=== PATIENT | male | born 1995 | race Caucasian/White ===

== ENCOUNTER 2019-02-27 18:21 | Emergency (ER) | payer OTHER, BC ==
[2019-02-27 18:26] VITALS: BP 98/79
--- NOTE | 2019-02-27 18:49 | EDPHY ---
General Time Seen by Provider: 02/27/19 18:43 Narrative: CLINICAL IMPRESSION: Left thumb pain, paresthesia ASSESSMENT/PLAN: Patient is a 23-year-old male who presents to the emergency department with left thumb pain and numbness to the top of his thumb after being handcuffed 2 nights ago. Patient is afebrile, he is in no acute distress. Physical examination reveals tenderness at the base of the left thumb, pins and needles sensation overlying this region into the dorsal aspect of his distal thumb on palpation. His motor nerve exam was normal. X-ray revealed no acute bony abnormality. History and physical examination is most consistent with sensory traumatic paresthesia and left thumb pain. No findings to suggest acute fracture, dislocation, compartment syndrome or neurovascular compromise. Patient understands that this may take time for symptoms to improve, he is followed at [facility] under his student health insurance. He was also given referral for hand specialist. Return precautions discussed. ED COURSE: 1844: Case discussed with Dr. Sands 1918: X-ray reviewed, negative for acute bony abnormality CHIEF COMPLAINT: Left thumb pain, "pins and needles sensation on his thumb" HPI: Patient is a 23-year-old male with no significant medical history who presents to the emergency department with complaints of left thumb pain and pins and needles overlying his thumb after being handcuffed 2 nights ago. Patient reports he was arrested, place in handcuffs and sat her prolonged period of time on his wrist in handcuffs. Since the handcuffs were removed he has been experiencing pain at the base of his left thumb as well as pins and needle sensation overlying the dorsal aspect of his thumb. He denies any decreased sensation, he denies any numbness. He denies any previous injury or surgery to this hand. He denies any open wounds. He denies any other injury or complaint. ROS: Otherwise negative, please see HPI. PHYSICAL EXAM: General Appearance: Well-developed, well-appearing and in no acute distress. Skin: Warm, dry, no rashes. Upper Extremities: Right upper extremity is unremarkable. Intact distal pulses , Full range of motion intact, no tenderness, no ecchymosis or edema. Patient is tender at the base of the left thumb extending into the metacarpal. He has no anatomical snuffbox tenderness. Patient describes pins and needle sensation upon palpation, denies any decreased sensation. Two point discrimination is intact distally. Patient has full range of motion of the thumb. The radial, ulnar and median nerves were all tested. Radial nerve: Patient is able to extend wrist and fingers of the local joints. Ulnar nerve: Patient is able to abduct all fingers. Median nerve patient is able to oppose thumb to pinky. 2+ radial pulse Left upper extremity is otherwise unremarkable. Lower Extremities: Intact distal pulses, No edema, No tenderness, No cyanosis, full range of motion intact, No calf tenderness bilaterally. Neuro: Alert and oriented x3, Cranial nerves 2-12 grossly intact. No focal deficit. Psych: Normal mood, normal affect. No agitation. MEDICAL DECISION MAKING: Patient was seen independently. Secondary supervising physician at time of evaluation was Dr. Sands, he did not evaluate this patient. Diagnosis: Left thumb pain, paresthesia. Summary: See Assessment and Plan for summary of ED visit Independent visualization of images, tracing, or specimens: Yes. Decision to obtain medical records or history from someone other than the patient: No Review / Summarize previous medical records: Yes Discussed patient with another provider: Yes, Dr. Sands Patient Progress: Stable, discharge. - Diagnostics Imaging Results: Imaging Impressions Hand X-Ray 02/27/19 18:42 Impression: No evidence for acute osseous abnormality left hand. - History Smoking Status: Never smoked - Objective Vital Signs: Initial Vital Signs Temperature (C) 36.6 C 02/27/19 18:23 Heart Rate 106 H 02/27/19 18:23 Respiratory Rate 18 02/27/19 18:23 Blood Pressure 98/79 L 02/27/19 18:23 O2 Sat (%) 94 02/27/19 18:23 O2 Delivery Mode Room Air Allergies/Adverse Reactions: No Known Allergies Allergy (Unverified 02/27/19 18:23) Home Medications: Medication Instructions Recorded NK [No Known Home Meds] 02/27/19 Departure - Departure Disposition: Home, Routine, Self-Care Clinical Impression: Pain of left thumb, Paresthesia Condition: Good Instructions: Contusion in Adults (ED), Paresthesia (ED) Additional Instructions: DISCHARGE INSTRUCTIONS FROM YOUR PROVIDER Thank you for visiting our emergency department today. Please keep in mind that discharge from the emergency department does not mean that there is nothing wrong - it simply means that we have not identified an emergency condition that requires further evaluation or treatment in the hospital. You should always plan to follow up with primary care for re-evaluation of your condition in the next 2-3 days. Follow up at [facility]. You have also been given a hand specialist referral should her symptoms persist. Rest, ice (on and off). For pain control: You may take Tylenol, I recommend 500-1000 mg every 6-8 hours as needed. Take with food and a full glass of water. Stop taking if this is upsetting you stomach. Do not exceed 4000 mg in a 24 hr period. You may also take ibuprofen, recommend 400 mg every 6 hr. Take with food and a full glass of water. Stop taking if this upsets your stomach. Do not exceed 2400 mg in a 24 hr period. People present with illnesses and injuries in different ways, and it is always possible that we have missed something. Again, thank you for choosing our emergency department. We hope that you feel better. Referrals: [facility] [Clinic] - 3-4 days, if not improved Lukasz Monique MD [Medical Doctor] - As per Instructions (This is a hand specialist should your symptoms not improve over time.)
== END 2019-02-27 19:19 | disposition home or self-care (01) ==
DX: M79.642 Pain in left hand (principal); R20.2 Paresthesia of skin